=== PATIENT | male | born 1950 | race Caucasian/White ===

== ENCOUNTER 2017-04-05 04:40 | Emergency (ER) | payer MEDICARE, BC ==
[~2017-04-05] VITALS: Ht 193 cm; Wt 107.0 kg
[~2017-04-05 04:40] MED LIST: ALKA-SELTZER P1 EA12 PO; AMOX TR-K CLV1 EAC4 PO; ASPIR-TRIN325 M2 PO; AZASAN75 M1 PO; CARDURA XL8 MG PO; DEXAMETHASONE4 M1 PO; ENALAPRIL MALEAT5 M1 PO; HYDROCHLOROTH12.5 M2 PO; KEPPRA250 M1 PO; KEPPRA500 M3 PO; LYRICA50 MG/CAP PO; MEN'S MULTI-VI1 EACH PO; METOPROLOL SUCC25 M1 PO; PLAQUENIL200 M1 PO; PRAVASTATIN SOD10 M1 PO; PREDNISONE5 M1 PO; VITAMIN D31000 UNI4 PO; [UNRECOGNIZED DRUG - OTHER] PO
[2017-04-05] MEDS ORDERED: COREG12.5 M1 PO (05:07)
[2017-04-05 05:49] LABS: BASO % 0.1 % (0-2); EOS % 1.3 % (0-7); EOSINOPHIL ABSOLUTE COUNT 0.1 tho/cmm (0.0-0.7); HCT-HEMATOCRIT 41.3 % (36.0-53.5); HGB-HEMOGLOBIN 14.5 gm/dl (13.5-17.0); IMMATURE GRANULOCYTES ABSOLUTE 0.01 tho/cmm (0-0.03); IMMATURE GRANULOCYTES PERCENT 0.1 % (0-0.3); LYMPH % 7.9 % (20-45); LYMPH ABSOLUTE COUNT 0.7 tho/cmm (0.8-4.5); MCH (MEAN CORPUSCULAR HGB) 33.5 pg (28.0-32.0); MCHC MEAN CORPUSCULAR HGB CONC 35.1 % (32.0-36.0); MCV (MEAN CELL VOLUME) 95.4 fl (82.0-96.0); MEAN PLATELET VOLUME 11.5 cmc (9.4-12.4); MONO % 7.2 % (0-12); MONOCYTE ABSOLUTE COUNT 0.6 tho/cmm (0.0-1.2); NEUTROPHIL ABSOLUTE COUNT 7.2 tho/cmm (1.6-8.0); NEUTROPHIL-AUTOMATED 7.2 tho/cmm (1.6-8.0); NEUTROPHILS % 83.4 % (40-80); PLATELET COUNT 110 tho/cmm (150-450); RED BLOOD COUNT 4.33 mil/cmm (4.40-5.70); RED CELL DISTRIBUTION WIDTH 12.8 % (12.4-16.4); WHITE BLOOD COUNT 8.6 tho/cmm (4.0-10.0)
[2017-04-05 06:07] LABS: ALB/GLOB RATIO 1.3 (0.8-2.0); ALBUMIN 3.4 g/dl (3.5-5.0); ALKALINE PHOSPHATASE 79 U/L (33-138); ALT/SGPT 18 U/L (12-78); ANION GAP 12 mmol/L (0-20); AST/SGOT 16 U/L (10-40); BILIRUBIN,TOTAL 0.5 mg/dl (0.0-1.5); BLOOD UREA NITROGEN 17 mg/dl (6-24); CALCIUM 8.9 mg/dl (8.5-10.5); CARBON DIOXIDE-VENOUS 28 mmol/L (22-32); CHLORIDE 110 mmol/l (96-110); CREATININE 1.14 mg/dl (0.60-1.30); GLUCOSE 118 mg/dL (70-110); POTASSIUM 3.6 mmol/L (3.7-5.1); SODIUM 146 mmol/L (135-145); eGFR VALUE FOR BLACK 76 mL/Min
[2017-04-05] MEDS ORDERED: FLOMAX0.4 M1 PO (06:33)
[2017-04-05] MEDS ORDERED: ZOFRAN4 M2 PO (06:33)
[2017-04-05] MEDS ORDERED: NORCO 5/3251 TAB PO (06:33)
[2017-04-05 07:06] LABS: URINE BILIRUBIN SMALL (NEG); URINE BLOOD LARGE (NEG); URINE GLUCOSE (UA) NEGATIVE (NEG); URINE KETONE SMALL (NEG); URINE LEUKOCYTE ESTERASE POSITIVE (NEG); URINE NITRITE NEGATIVE (NEG); URINE PROTEIN MODERATE (NEG)
[2017-04-05 07:17] LABS: URINE APPEARANCE HAZY; URINE COLOR YELLOW
[2017-04-05 07:18] LABS: URINE MUCUS 2+
[2017-04-05 07:20] LABS: URINE BACTERIA 1+; URINE EPITHELIAL CELLS RARE /[HPF] (0-10); URINE RBC 25-35 /[HPF] (0-5)
== END 2017-04-05 07:32 ==
LOC: EDMED 04:40
PROVIDERS: Emergency Medicine
DX: N13.2 Hydronephrosis with renal and ureteral calculous obstruction (principal); D69.6 Thrombocytopenia, unspecified; I10 Essential (primary) hypertension; M06.9 Rheumatoid arthritis, unspecified
CPT/HCPCS: J1885; J2270; J2405; J7030